=== PATIENT | male | born 1930 | race Caucasian/White ===

== ENCOUNTER 2017-07-02 18:04 | Observation (INO) | payer OTHER ==
[~2017-07-02] VITALS: Ht 180.3 cm; Wt 97.7 kg
[~2017-07-02 18:04] MED LIST: AMIO200T2 PO; APIX2.5T PO; CARV3.1262 PO; FURO40TA5 PO; LISI-617 PO; MELA3TAB PO; NATE60TA8 PO; ONDA4TAB10 PO; POTA20TA82 PO; SIMV40TA5 PO; SPIR25TA4 PO
[2017-07-02 18:48] LABS: BASOPHILS % (AUTO) 1.4 % (0.0-5.0); EOSINOPHILS % (AUTO) 1.9 % (0.0-8.0); HEMATOCRIT 35.6 % (42-54); LYMPHOCYTES % (AUTO) 21.4 % (21.0-51.0); MEAN CORPUSCULAR HEMOGLOBIN 30.6 pg (27.0-33.0); MEAN CORPUSCULAR HGB CONC 32.6 g/dL (32.0-36.0); MEAN CORPUSCULAR VOLUME 93.9 fL (79-99); MONOCYTES % (AUTO) 14.2 % (3.0-13.0); NEUTROPHILS % (AUTO) 61.1 % (40.0-77.0); PLATELET COUNT (AUTO) 207 K/uL (130-400); RED BLOOD CELL COUNT(AUTO) 3.79 MIL/uL (4.50-6.20); RED CELL DISTRIBUTION WIDTH 15.9 % (11.0-15.5); WHITE BLOOD COUNT (AUTO) 5.7 K/uL (4.8-10.8)
[2017-07-02 18:58] LABS: CREATININE 2.2 mg/dL (0.5-1.5); POTASSIUM 4.4 mmol/L (3.5-5.1)
[2017-07-02 19:03] LABS: BILIRUBIN,TOTAL 0.7 mg/dL (0.2-1.0); TOTAL PROTEIN, SERUM 6.4 g/dL (6.0-8.3)
[2017-07-02 19:24] LABS: B-TYPE NATRIURETIC PEPTIDE 602 pg/mL (0-100)
[2017-07-02] MEDS ORDERED: FUROSEMIDE 10 MG/ML 4ML VIAL ONE (20:32)
[2017-07-02 21:20] LABS: APPEARANCE,URINE Clear (CLEAR); BILIRUBIN,URINE Negative (NEGATIVE); COLOR,URINE Yellow (YELLOW); GLUCOSE, URINE (UA) Negative (NEGATIVE); KETONES,URINE Negative (NEGATIVE); LEUKOCYTE ESTERASE ,URINE Negative (NEGATIVE); NITRATE,URINE Negative (NEGATIVE); OCCULT BLOOD,URINE Negative (NEGATIVE); PH,URINE 5.5 (5.0-8.0); PROTEIN,URINE Trace (NEGATIVE); UROBILINOGEN,URINE 0.2 mg/dL (0.2-1.0)
[2017-07-02 21:40] VITALS: BP 112/71
[2017-07-02 23:54] VITALS: BP 100/62
[2017-07-03 03:44] VITALS: BP 114/52
[2017-07-03 05:00] LABS: HEMATOCRIT 36.1 % (42-54); MEAN CORPUSCULAR HEMOGLOBIN 31.8 pg (27.0-33.0); MEAN CORPUSCULAR HGB CONC 33.8 g/dL (32.0-36.0); MEAN CORPUSCULAR VOLUME 94.1 fL (79-99); PLATELET COUNT (AUTO) 186 K/uL (130-400); RED BLOOD CELL COUNT(AUTO) 3.84 MIL/uL (4.50-6.20); WHITE BLOOD COUNT (AUTO) 6.1 K/uL (4.8-10.8)
[2017-07-03] MEDS: FUROSEMIDE 10 MG/ML 2ML VIAL IVP SCH ×3 (05:01→21:44)
[2017-07-03 07:25] VITALS: BP 105/73
[2017-07-03 11:02] VITALS: BP 101/68
[2017-07-03] MEDS ORDERED: MELA3TAB PO (12:56)
[2017-07-03] MEDS ORDERED: FURO20TA4 PO (12:56)
[2017-07-03 15:00] VITALS: BP 102/70
[2017-07-03 20:10] VITALS: BP 105/69
[2017-07-03] MEDS: CARVEDILOL 3.125 MG TABLET PO SCH (21:44)
[2017-07-03] MEDS: APIXABAN 2.5 MG TABLET PO SCH (21:44)
[2017-07-03 23:50] VITALS: BP 98/58
[2017-07-04 03:52] LABS: CREATININE 2.1 mg/dL (0.5-1.5); POTASSIUM 3.9 mmol/L (3.5-5.1)
[2017-07-04 04:05] VITALS: BP 102/68
[2017-07-04] MEDS: FUROSEMIDE 10 MG/ML 2ML VIAL IVP SCH ×2 (04:45→12:17)
[2017-07-04 08:22] VITALS: BP 95/67
[2017-07-04] MEDS: CARVEDILOL 3.125 MG TABLET PO SCH (09:00)
[2017-07-04] MEDS ORDERED: LISINOPRIL 2.5 MG TABLET PO SCH (09:00)
[2017-07-04] MEDS: APIXABAN 2.5 MG TABLET PO SCH (09:16)
[2017-07-04 11:27] VITALS: BP 98/67
== END 2017-07-04 16:37 | disposition home or self-care (01) ==
LOC: EDH 18:04 → EDHIP 20:20 → 3CH 21:07
PROVIDERS: ADMIT Internal Medicine; ATTEND Internal Medicine
DX: I50.23 Acute on chronic systolic (congestive) heart failure (principal); I13.0 Hypertensive heart and chronic kidney disease with heart failure and stage 1 through stage 4 chronic kidney disease, or unspecified chronic kidney disease; I45.2 Bifascicular block; I42.9 Cardiomyopathy, unspecified; I25.10 Atherosclerotic heart disease of native coronary artery without angina pectoris; N18.4 Chronic kidney disease, stage 4 (severe); I48.0 Paroxysmal atrial fibrillation; E78.5 Hyperlipidemia, unspecified; N50.89 Other specified disorders of the male genital organs; Z95.810 Presence of automatic (implantable) cardiac defibrillator; Z82.49 Family history of ischemic heart disease and other diseases of the circulatory system
CPT/HCPCS: 36415 ×3; 71010 ×2; 76770; 80048; 80053; 81003; 82948 ×6; 83880 ×2; 84484; 85025; 85027; 93005; 96374; 96376 ×2; 99285; G0378 ×45; J1940 ×6

== ENCOUNTER 2017-08-28 10:28 | Inpatient (IN) | payer OTHER ==
[~2017-08-28] VITALS: Ht 177.8 cm; Wt 91.4 kg
[~2017-08-28 10:28] MED LIST changes: -FURO40TA5 PO; -POTA20TA82 PO; -SPIR25TA4 PO
[2017-08-28] MEDS ORDERED: SODIUM CHLORIDE 0.9% 1000ML 1,000 ML IV ONE (11:10)
[2017-08-28] MEDS ORDERED: CEFTRIAXONE SODIUM 1 GM ONE (11:10)
[2017-08-28 11:22] LABS: BASOPHILS % (AUTO) 0.7 % (0.0-5.0); EOSINOPHILS % (AUTO) 0.8 % (0.0-8.0); HEMATOCRIT 38.6 % (42-54); LYMPHOCYTES % (AUTO) 13.6 % (21.0-51.0); MEAN CORPUSCULAR HEMOGLOBIN 31.3 pg (27.0-33.0); MEAN CORPUSCULAR HGB CONC 33.8 g/dL (32.0-36.0); MEAN CORPUSCULAR VOLUME 92.6 fL (79-99); MONOCYTES % (AUTO) 18.3 % (3.0-13.0); NEUTROPHILS % (AUTO) 66.6 % (40.0-77.0); PLATELET COUNT (AUTO) 163 K/uL (130-400); RED BLOOD CELL COUNT(AUTO) 4.17 MIL/uL (4.50-6.20); RED CELL DISTRIBUTION WIDTH 15.5 % (11.0-15.5); WHITE BLOOD COUNT (AUTO) 6.3 K/uL (4.8-10.8)
[2017-08-28 11:29] LABS: ALBUMIN 3.8 g/dL (3.5-5.0); BILIRUBIN,TOTAL 1.6 mg/dL (0.2-1.0); CREATINE KINASE MB 0.5 ng/mL (0.5-3.6); CREATININE 2.8 mg/dL (0.5-1.5); POTASSIUM 3.5 mmol/L (3.5-5.1); TOTAL PROTEIN, SERUM 7.5 g/dL (6.0-8.3)
[2017-08-28 11:54] LABS: BASOPHILS % (MANUAL) 1 % (0-2); EOSINOPHILS % (MANUAL) 1 % (1-6); LYMPHOCYTES % (MANUAL) 6 % (22-44); MAN.DIFF COMMENT-IMPRESSION MANUAL DIFFERENTIAL; MONOCYTES % (MANUAL) 15 % (2-9); PLATELET MORPHOLOGY COMMENT ADEQUATE; REACTIVE LYMPHOCYTES 6 % (0-0); SEGMENTED NEUTROPHILS % 71 % (40-70)
[2017-08-28 11:56] LABS: INR 1.15 (0.85-1.15); PARTIAL THROMBOPLASTIN TIME 28.4 SEC (26.3-35.5)
[2017-08-28] MEDS ORDERED: POTA-79 PO (15:00)
[2017-08-28] MEDS ORDERED: FURO80TA3 PO (15:00)
[2017-08-28 15:01] VITALS: BP 79/58
[2017-08-28 19:38] VITALS: BP 89/62
[2017-08-28] MEDS: ATORVASTATIN CALCIUM 20 MG TABLET PO SCH (20:53)
[2017-08-28] MEDS: APIXABAN 2.5 MG TABLET PO SCH (20:53)
[2017-08-28] MEDS: FUROSEMIDE 20 MG TABLET PO SCH (20:54)
[2017-08-28 23:41] VITALS: BP 100/65
[2017-08-29 03:35] VITALS: BP 97/62
[2017-08-29 04:39] LABS: BASOPHILS % (AUTO) 0.9 % (0.0-5.0); EOSINOPHILS % (AUTO) 1.9 % (0.0-8.0); HEMATOCRIT 37.2 % (42-54); LYMPHOCYTES % (AUTO) 17.9 % (21.0-51.0); MEAN CORPUSCULAR HEMOGLOBIN 31.2 pg (27.0-33.0); MEAN CORPUSCULAR HGB CONC 33.4 g/dL (32.0-36.0); MEAN CORPUSCULAR VOLUME 93.5 fL (79-99); MONOCYTES % (AUTO) 17.5 % (3.0-13.0); NEUTROPHILS % (AUTO) 61.8 % (40.0-77.0); NUCLEATED RED BLOOD CELLS 0.1 % (0.0-0.19); PLATELET COUNT (AUTO) 163 K/uL (130-400); RED BLOOD CELL COUNT(AUTO) 3.98 MIL/uL (4.50-6.20); RED CELL DISTRIBUTION WIDTH 15.9 % (11.0-15.5); WHITE BLOOD COUNT (AUTO) 5.2 K/uL (4.8-10.8)
[2017-08-29 05:00] LABS: CREATININE 2.5 mg/dL (0.5-1.5); POTASSIUM 3.6 mmol/L (3.5-5.1)
[2017-08-29 05:11] LABS: B-TYPE NATRIURETIC PEPTIDE 806 pg/mL (0-100)
[2017-08-29] MEDS: FUROSEMIDE 20 MG TABLET PO SCH ×3 (05:45→22:28)
[2017-08-29 08:00] VITALS: BP 91/61
[2017-08-29] MEDS: APIXABAN 2.5 MG TABLET PO SCH ×2 (09:14→22:29)
[2017-08-29] MEDS: AMIODARONE HCL 200 MG TABLET PO SCH (09:14)
[2017-08-29] MEDS ORDERED: DOBUTAMINE 250MG/D5 250ML 250 ML IV SCH (11:15)
[2017-08-29 12:31] VITALS: BP 89/64
[2017-08-29 15:00] VITALS: BP 100/66
[2017-08-29 20:25] VITALS: BP 107/64
[2017-08-29] MEDS: ATORVASTATIN CALCIUM 20 MG TABLET PO SCH (22:28)
[2017-08-30] VITALS (8 sets, daily range): BP systolic 78–119; BP diastolic 56–67
[2017-08-30] MEDS: FUROSEMIDE 20 MG TABLET PO SCH ×2 (07:17→12:03)
[2017-08-30] MEDS: APIXABAN 2.5 MG TABLET PO SCH (08:03)
[2017-08-30] MEDS: AMIODARONE HCL 200 MG TABLET PO SCH (08:03)
[2017-08-30] MEDS ORDERED: LACTULOSE 20 GM/30 ML UDCUP PO SCH (10:30)
[2017-08-30] MEDS: INSULIN HUMULIN R 100 UNIT/ML 3ML SQ SCH ×2 (11:30→15:39)
[2017-08-30] MEDS ORDERED: CEPHALEXIN 500 MG CAPSULE PO ONE (12:01)
[2017-08-30] MEDS ORDERED: CEPHALEXIN 500 MG CAPSULE PO SCH (14:00)
[2017-08-31] MEDS ORDERED: **HM** NATEGLINIDE 60MG PO SCH (11:30)
== END 2017-08-30 20:45 | disposition left against medical advice (07) | DRG 291 ==
LOC: EDH 10:28 → EDHIP 11:50 → 2AH 14:38
PROVIDERS: ADMIT Internal Medicine; ATTEND Internal Medicine
DX: I13.0 Hypertensive heart and chronic kidney disease with heart failure and stage 1 through stage 4 chronic kidney disease, or unspecified chronic kidney disease (principal); R57.0 Cardiogenic shock; N17.9 Acute kidney failure, unspecified; E11.22 Type 2 diabetes mellitus with diabetic chronic kidney disease; I48.1 Persistent atrial fibrillation; I07.1 Rheumatic tricuspid insufficiency; I48.0 Paroxysmal atrial fibrillation; I50.23 Acute on chronic systolic (congestive) heart failure; L03.115 Cellulitis of right lower limb; L03.116 Cellulitis of left lower limb; R17 Unspecified jaundice; E78.5 Hyperlipidemia, unspecified; I25.10 Atherosclerotic heart disease of native coronary artery without angina pectoris; I42.0 Dilated cardiomyopathy; I44.7 Left bundle-branch block, unspecified; I50.84 End stage heart failure; K21.9 Gastro-esophageal reflux disease without esophagitis; N18.9 Chronic kidney disease, unspecified; Z79.01 Long term (current) use of anticoagulants; Z85.46 Personal history of malignant neoplasm of prostate; Z95.0 Presence of cardiac pacemaker; Z82.49 Family history of ischemic heart disease and other diseases of the circulatory system
CPT/HCPCS: 36415; 71045; 80048; 80053; 82550; 82553; 82948; 83605; 83880; 84484; 85007; 85025; 85610; 85730; 87040; 93005; 93306; 93970; 99291; J0696; J1250; J7030

== ENCOUNTER 2017-10-19 15:04 | Inpatient (IN) | payer OTHER ==
[~2017-10-19] VITALS: Ht 180.3 cm; Wt 88.3 kg
[~2017-10-19 15:04] MED LIST changes: -AMIO200T2 PO; +AMIO200T5 PO; +FURO80TA3 PO; +POTA-79 PO
[2017-10-19 16:10] LABS: BASOPHILS % (AUTO) 1.9 % (0.0-5.0); EOSINOPHILS % (AUTO) 0.4 % (0.0-8.0); HEMATOCRIT 40.3 % (42-54); LYMPHOCYTES % (AUTO) 8.5 % (21.0-51.0); MEAN CORPUSCULAR HGB CONC 33.3 g/dL (32.0-36.0); MEAN CORPUSCULAR VOLUME 90.2 fL (79-99); MONOCYTES % (AUTO) 12.3 % (3.0-13.0); NEUTROPHILS % (AUTO) 76.9 % (40.0-77.0); NUCLEATED RED BLOOD CELLS 0.1 % (0.0-0.19); PLATELET COUNT (AUTO) 190 K/uL (130-400); RED BLOOD CELL COUNT(AUTO) 4.47 MIL/uL (4.50-6.20); RED CELL DISTRIBUTION WIDTH 16.1 % (11.0-15.5); WHITE BLOOD COUNT (AUTO) 7.9 K/uL (4.8-10.8)
[2017-10-19 16:21] LABS: INR 1.24 (0.85-1.15); PARTIAL THROMBOPLASTIN TIME 29.4 SEC (26.3-35.5)
[2017-10-19 16:32] LABS: BILIRUBIN,TOTAL 1.4 mg/dL (0.2-1.0); CREATINE KINASE MB 1.2 ng/mL (0.5-3.6); CREATININE 3.1 mg/dL (0.5-1.5)
[2017-10-19] MEDS ORDERED: SODIUM CHLORIDE 0.9% 1000ML 1,000 ML IV ONE (17:07)
[2017-10-19] MEDS ORDERED: BISACODYL 10 MG SUPP.RECT RC ONE (18:21)
[2017-10-19] MEDS ORDERED: POTASSIUM BICARB/CIT AC 25 MEQ TABLET.EFF ONE (18:21)
[2017-10-19 18:39] LABS: APPEARANCE,URINE Clear (CLEAR); BILIRUBIN,URINE Negative (NEGATIVE); COLOR,URINE Yellow (YELLOW); GLUCOSE, URINE (UA) Negative (NEGATIVE); KETONES,URINE Negative (NEGATIVE); LEUKOCYTE ESTERASE ,URINE Negative (NEGATIVE); NITRATE,URINE Negative (NEGATIVE); OCCULT BLOOD,URINE Negative (NEGATIVE); PROTEIN,URINE Negative (NEGATIVE); UROBILINOGEN,URINE 0.2 mg/dL (0.2-1.0)
[2017-10-19 20:45] VITALS: BP 98/53
[2017-10-20] VITALS (7 sets, daily range): BP systolic 93–138; BP diastolic 62–77
[2017-10-20] MEDS: FUROSEMIDE 10 MG/ML 2ML VIAL IV SCH ×5 (00:25→23:59)
[2017-10-20] MEDS ORDERED: MIDO5TAB PO (04:18)
[2017-10-20] MEDS ORDERED: METO5TAB7 PO (04:18)
[2017-10-20] MEDS ORDERED: CIPR7.5D OT (04:23)
[2017-10-20 06:36] LABS: HEMATOCRIT 39.7 % (42-54); MEAN CORPUSCULAR HEMOGLOBIN 30.6 pg (27.0-33.0); MEAN CORPUSCULAR HGB CONC 33.8 g/dL (32.0-36.0); MEAN CORPUSCULAR VOLUME 90.4 fL (79-99); PLATELET COUNT (AUTO) 205 K/uL (130-400); RED BLOOD CELL COUNT(AUTO) 4.39 MIL/uL (4.50-6.20); WHITE BLOOD COUNT (AUTO) 9.3 K/uL (4.8-10.8)
[2017-10-20 06:52] LABS: BILIRUBIN,TOTAL 1.6 mg/dL (0.2-1.0); CREATININE 2.8 mg/dL (0.5-1.5); TOTAL PROTEIN, SERUM 6.9 g/dL (6.0-8.3)
[2017-10-20 07:02] LABS: B-TYPE NATRIURETIC PEPTIDE 1480 pg/mL (0-100)
[2017-10-20 07:04] LABS: POTASSIUM 2.9 mmol/L (3.5-5.1)
[2017-10-20] MEDS ORDERED: POTASSIUM CHLORIDE 20MEQ/100ML 100 ML IV PRN (08:15)
[2017-10-20] MEDS ORDERED: LIDOCAINE HCL-MPF 1% 2ML VIAL IVP PRN (08:15)
[2017-10-20] MEDS: MORPHINE SULFATE 2 MG/ML 1ML SYG IVP PRN ×2 (09:38→20:27)
[2017-10-20] MEDS ORDERED: PHARMACY COMMUNICATION MISC SCH (12:15)
[2017-10-20] MEDS: POTASSIUM CHLORIDE 20 MEQ ERTAB PO PRN (12:43)
[2017-10-20] MEDS: POTASSIUM CHLORIDE 10% ELIXIR 20 MEQ/15 ML UDCUP PO PRN (15:38)
[2017-10-20] MEDS ORDERED: CADEXOMER IODINE 40 GM GEL TP ONE (17:00)
[2017-10-20] MEDS: APIXABAN 2.5 MG TABLET PO SCH (20:26)
[2017-10-21] MEDS: DOBUTAMINE HCL 250 MG in SODIUM CHLORIDE 0.9% 250 ML IV SCH ×2 (03:09→20:36)
[2017-10-21 03:24] VITALS: BP 97/60
[2017-10-21] MEDS: FUROSEMIDE 10 MG/ML 2ML VIAL IV SCH (05:17)
[2017-10-21 07:34] LABS: CREATININE 2.4 mg/dL (0.5-1.5)
[2017-10-21 07:43] VITALS: BP 111/60
[2017-10-21 07:52] LABS: POTASSIUM 2.5 mmol/L (3.5-5.1)
[2017-10-21] MEDS: AMIODARONE HCL 200 MG TABLET PO SCH (09:38)
[2017-10-21] MEDS: POTASSIUM CHLORIDE 20 MEQ ERTAB PO PRN (09:38)
[2017-10-21] MEDS: APIXABAN 2.5 MG TABLET PO SCH ×2 (09:38→20:34)
[2017-10-21] MEDS: POTASSIUM CHLORIDE 10% ELIXIR 20 MEQ/15 ML UDCUP PO PRN ×3 (09:39→18:46)
[2017-10-21 11:26] VITALS: BP 95/64
[2017-10-21 16:05] VITALS: BP 112/70
[2017-10-21 19:40] VITALS: BP 113/66
[2017-10-21] MEDS ORDERED: GUAIFENESIN-CODEINE 5 ML SYRUP PO PRN (21:15)
[2017-10-21 23:15] VITALS: BP 102/64
[2017-10-22 00:36] LABS: ABG BASE EXCESS 7.9 mmol/L (-2.0-3.0); ABG HCO3 32.2 mmol/L (21.0-28.0); ABG OXYGEN SATURATION 80.7 % (95.0-99.0); ABG PCO2 43 mmHg (35-48)
[2017-10-22] MEDS: MORPHINE SULFATE 2 MG/ML 1ML SYG IVP PRN ×3 (00:48→16:45)
[2017-10-22] MEDS: ONDANSETRON HCL MDV 20ML 2 MG/ML VIAL IVP PRN (01:52)
[2017-10-22 03:53] VITALS: BP 94/56
[2017-10-22 04:37] LABS: CREATININE 2.4 mg/dL (0.5-1.5); POTASSIUM 3.1 mmol/L (3.5-5.1)
[2017-10-22] MEDS: DOBUTAMINE HCL 250 MG in SODIUM CHLORIDE 0.9% 250 ML IV SCH (05:56)
[2017-10-22] MEDS: POTASSIUM CHLORIDE 10% ELIXIR 20 MEQ/15 ML UDCUP PO PRN ×2 (05:57→08:15)
[2017-10-22 07:50] VITALS: BP 93/58
[2017-10-22] MEDS: APIXABAN 2.5 MG TABLET PO SCH ×2 (08:14→21:28)
[2017-10-22] MEDS: ATORVASTATIN CALCIUM 10 MG TABLET PO SCH (08:14)
[2017-10-22] MEDS: AMIODARONE HCL 200 MG TABLET PO SCH (08:14)
[2017-10-22 11:00] VITALS: BP 98/56
[2017-10-22 15:30] VITALS: BP 90/60
[2017-10-22 19:46] VITALS: BP 96/58
[2017-10-23] VITALS (7 sets, daily range): BP systolic 82–97; BP diastolic 56–71
[2017-10-23 05:43] LABS: CREATININE 2.6 mg/dL (0.5-1.5); POTASSIUM 4.1 mmol/L (3.5-5.1)
[2017-10-23] MEDS: APIXABAN 2.5 MG TABLET PO SCH ×2 (07:24→21:27)
[2017-10-23] MEDS: AMIODARONE HCL 200 MG TABLET PO SCH (07:24)
[2017-10-23] MEDS: ATORVASTATIN CALCIUM 10 MG TABLET PO SCH (07:24)
[2017-10-23] MEDS ORDERED: LACTULOSE 20 GM/30 ML UDCUP PO SCH (14:15)
[2017-10-24 04:00] VITALS: BP 97/67
[2017-10-24 04:22] LABS: CREATININE 2.6 mg/dL (0.5-1.5); POTASSIUM 3.9 mmol/L (3.5-5.1)
[2017-10-24 08:00] VITALS: BP 109/58
[2017-10-24] MEDS: AMIODARONE HCL 200 MG TABLET PO SCH (08:46)
[2017-10-24] MEDS: APIXABAN 2.5 MG TABLET PO SCH ×2 (08:46→21:33)
[2017-10-24] MEDS: ATORVASTATIN CALCIUM 10 MG TABLET PO SCH (08:46)
[2017-10-24 12:00] VITALS: BP 94/61
[2017-10-24 16:00] VITALS: BP 131/75
[2017-10-24 20:03] VITALS: BP 91/61
[2017-10-24 23:51] VITALS: BP 90/65
[2017-10-25 03:46] VITALS: BP 91/57
[2017-10-25 08:00] VITALS: BP 94/71
[2017-10-25] MEDS: ATORVASTATIN CALCIUM 10 MG TABLET PO SCH (08:12)
[2017-10-25] MEDS: APIXABAN 2.5 MG TABLET PO SCH ×2 (08:12→20:25)
[2017-10-25] MEDS: AMIODARONE HCL 200 MG TABLET PO SCH (08:13)
[2017-10-25 12:00] VITALS: BP 95/66
[2017-10-25 16:00] VITALS: BP 95/65
[2017-10-25 19:35] VITALS: BP 94/74
[2017-10-25] MEDS: ALPRAZOLAM 0.25 MG TABLET PO SCH (20:26)
[2017-10-25 23:22] VITALS: BP 92/57
[2017-10-26 04:11] VITALS: BP 93/67
[2017-10-26 07:53] VITALS: BP 97/61
[2017-10-26] MEDS: APIXABAN 2.5 MG TABLET PO SCH ×2 (08:28→21:40)
[2017-10-26] MEDS: AMIODARONE HCL 200 MG TABLET PO SCH (08:28)
[2017-10-26] MEDS: ATORVASTATIN CALCIUM 10 MG TABLET PO SCH (08:28)
[2017-10-26] MEDS ORDERED: MORPHINE SULFATE 4 MG/1ML SYG ONE (11:05)
[2017-10-26 12:00] VITALS: BP 82/60
[2017-10-26 16:00] VITALS: BP 90/68
[2017-10-26] MEDS: ONDANSETRON HCL MDV 20ML 2 MG/ML VIAL IVP PRN (17:57)
[2017-10-26 19:56] VITALS: BP 84/50
[2017-10-26] MEDS: ALPRAZOLAM 0.25 MG TABLET PO SCH (21:40)
[2017-10-26 23:57] VITALS: BP 100/62
[2017-10-27] MEDS ORDERED: MORPHINE SULFATE 4 MG/1ML SYG ONE (03:45)
[2017-10-27 04:01] VITALS: BP 89/64
[2017-10-27] MEDS ORDERED: MORPHINE SULFATE 4 MG/1ML SYG IVP PRN (06:30)
[2017-10-27 08:00] VITALS: BP 89/66
[2017-10-27] MEDS: APIXABAN 2.5 MG TABLET PO SCH ×2 (09:03→22:48)
[2017-10-27] MEDS: ATORVASTATIN CALCIUM 10 MG TABLET PO SCH (09:03)
[2017-10-27] MEDS: AMIODARONE HCL 200 MG TABLET PO SCH (09:03)
[2017-10-27 12:00] VITALS: BP 92/67
[2017-10-27 16:00] VITALS: BP 100/62
[2017-10-27 19:40] VITALS: BP 90/53
[2017-10-27] MEDS: ALPRAZOLAM 0.25 MG TABLET PO SCH (22:48)
[2017-10-27 23:40] VITALS: BP 96/61
[2017-10-28 03:50] VITALS: BP 91/67
[2017-10-28 07:00] VITALS: BP 139/75
[2017-10-28] MEDS: APIXABAN 2.5 MG TABLET PO SCH (08:02)
[2017-10-28] MEDS: AMIODARONE HCL 200 MG TABLET PO SCH (08:02)
[2017-10-28] MEDS: ATORVASTATIN CALCIUM 10 MG TABLET PO SCH (08:02)
[2017-10-28] MEDS ORDERED: CADEXOMER IODINE 40 GM GEL TP SCH (09:00)
[2017-10-28] MEDS ORDERED: ZINC OXIDE OINT 30GM TUBE TP SCH (09:00)
[2017-10-28 11:00] VITALS: BP 85/59
== END 2017-10-28 14:39 | disposition hospice, home (50) | DRG 291 ==
LOC: EDH 15:04 → EDHIP 17:40 → OBSVTOIN 17:40 → 3CH 20:11 → 2AH 10-20 13:18 → 3AH 10-23 15:38
PROVIDERS: ADMIT Internal Medicine; ATTEND Internal Medicine
DX: I13.2 Hypertensive heart and chronic kidney disease with heart failure and with stage 5 chronic kidney disease, or end stage renal disease (principal); I50.43 Acute on chronic combined systolic (congestive) and diastolic (congestive) heart failure; N17.9 Acute kidney failure, unspecified; E46 Unspecified protein-calorie malnutrition; E11.22 Type 2 diabetes mellitus with diabetic chronic kidney disease; I27.20 Pulmonary hypertension, unspecified; I08.1 Rheumatic disorders of both mitral and tricuspid valves; I48.0 Paroxysmal atrial fibrillation; I42.0 Dilated cardiomyopathy; I48.2 Chronic atrial fibrillation; N18.5 Chronic kidney disease, stage 5; E78.5 Hyperlipidemia, unspecified; I44.7 Left bundle-branch block, unspecified; K21.9 Gastro-esophageal reflux disease without esophagitis; R62.7 Adult failure to thrive; Z79.01 Long term (current) use of anticoagulants; I50.82 Biventricular heart failure; I87.2 Venous insufficiency (chronic) (peripheral); Z68.27 Body mass index [BMI] 27.0-27.9, adult; Z95.810 Presence of automatic (implantable) cardiac defibrillator; Z85.46 Personal history of malignant neoplasm of prostate; Z82.49 Family history of ischemic heart disease and other diseases of the circulatory system
CPT/HCPCS: 36415; 36600; 71045; 71046; 74176; 76770; 80048; 80053; 81003; 82270; 82550; 82553; 82803; 82948; 83605; 83735; 83880; 84132; 84484; 85025; 85027; 85610; 85730; 87040; 92610; 93005; 97039; 99291; J1250; J1940; J2270; J7030